=== PATIENT | male | born 1995 | race Caucasian/White ===

== ENCOUNTER 2016-03-17 08:25 | Outpatient (CLI) ==
[2015-12-26 23:03] VITALS: BMI 24.4
[2016-03-17 08:43] LABS: BASOPHILS % (AUTO) 0.8 % (0.0-3.0); EOSINOPHILS # (AUTO) 0.1 K/ul (0.0-0.7); EOSINOPHILS % (AUTO) 2.9 % (0.0-7.0); HEMATOCRIT 48.3 % (42.0-52.0); HEMOGLOBIN 16.2 g/dl (14.0-18.0); IMMATURE GRANULOCYTE % (AUTO) 0.2 % (0.0-5.0); LYMPHOCYTES % (AUTO) 19.3 (10.0-50.0); MEAN CORPUSCULAR HEMOGLOBIN 28.1 pg (27.0-31.0); MEAN CORPUSCULAR HGB CONC 33.5 (31.8-35.4); MEAN CORPUSCULAR VOLUME 83.9 fl (80.0-94.0); MONOCYTES # (AUTO) 0.5 K/uL (0.4-2.0); MONOCYTES % (AUTO) 9.8 (0-10); NEUTROPHILS # (AUTO) 3.3 K/ul (2.0-6.9); PLATELET COUNT 269 10^3/uL (140-440); RED BLOOD COUNT 5.76 10^6/ul (4.70-6.10); WHITE BLOOD COUNT 4.91 K/ul (4.2-10.2)
[2016-03-17 09:22] LABS: ALBUMIN 3.8 g/dL (3.4-5.0); ALBUMIN/GLOBULIN RATIO 1.19; ANION GAP 10.6; BILIRUBIN,TOTAL 1.34 mg/dL (0.00-1.20); BUN/CREATININE RATIO 13.2; CALCIUM 9.4 mg/dL (8.2-10.2); CHOL/HDL RATIO 3.7 (4.5-6.4); CREATININE 1.06 mg/dL (0.60-1.10); POTASSIUM 4.6 mmol/L (3.5-5.1)
== END 2016-03-17 08:26 | disposition home or self-care (01) ==
LOC: LAB 08:25
PROVIDERS: ATTEND Nurse Practitioner Family
DX: Z00.00 Encounter for general adult medical examination without abnormal findings (principal)
CPT/HCPCS: 36415; 80053; 80061; 84443; 85025

== ENCOUNTER 2016-04-25 13:04 | Outpatient (CLI) ==
[2015-12-26 23:03] VITALS: BMI 24.4
[2016-04-25 14:06] LABS: ALBUMIN/GLOBULIN RATIO 1.08; ANION GAP 11.2; BILIRUBIN,TOTAL 1.24 mg/dL (0.00-1.20); BUN/CREATININE RATIO 16.03; CREATININE 1.06 mg/dL (0.60-1.10); FERRITIN 161.27 ng/mL (21.81-274.66); POTASSIUM 4.2 mmol/L (3.5-5.1); TOTAL PROTEIN 7.7 g/dL (6.4-8.2)
[2016-04-27 07:29] LABS: GAMMA GLUTAMYL TRANSFERASE 16 IU/L (0-65); TRANSFERRIN 295 mg/dL (200-370)
== END 2016-04-25 13:05 | disposition home or self-care (01) ==
LOC: LAB 13:04
PROVIDERS: ATTEND Nurse Practitioner Family
DX: E80.6 Other disorders of bilirubin metabolism (principal)
CPT/HCPCS: 36415; 80053; 80074; 82607; 82728; 82977; 83540; 83550; 84466; 85610